=== PATIENT | male | born 1960 | race Caucasian/White ===

== ENCOUNTER 2017-01-14 07:37 | Emergency (ER) | payer OTHER ==
[~2017-01-14] VITALS: Ht 175.3 cm; Wt 76.2 kg
--- NOTE | 2017-01-14 07:54 | NUR ---
DR HODGE AT BEDSIDE
[2017-01-14] MEDS ORDERED: SULFAMETH/TRIMETH 800/160 MG 1 UDTAB TABLET PO ONE ×2 (08:08→08:30)
[2017-01-14] MEDS ORDERED: CEPHALEXIN MONOHYDRATE 500 MG CAPSULE PO ONE ×2 (08:08→08:30)
--- NOTE | 2017-01-14 08:09 | NUR ---
PT MEDICATED ORDERED
--- NOTE | 2017-01-14 08:09 | NUR ---
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
--- NOTE | 2017-01-14 08:55 | NUR ---
PT TAKEN TO CT
--- NOTE | 2017-01-14 09:10 | NUR ---
PT BACK TO CT VIA WC
--- NOTE | 2017-01-14 11:15 | NUR ---
Patient discharged to home in stable condition. Written and verbal after care instructions given. Patient verbalizes understanding of instruction.
[2017-01-14 11:16] VITALS: BP 118/71
== END 2017-01-14 11:17 | disposition home or self-care (01) ==
LOC: ER 07:40
DX: M25.521 Pain in right elbow (principal); G89.29 Other chronic pain; I10 Essential (primary) hypertension
CPT/HCPCS: 73080; 73200; 73503; 73552; 99284; A4606; Z7610; 73502